=== PATIENT | female | born 1990 | race African-American/Black ===

== ENCOUNTER 2023-03-25 15:33 | Outpatient (CLI) | payer OTHER ==
[2023-03-27 20:08] LABS: AFP MOM 0.99 (.); AFP VALUE 43.5 ng/mL (.); DIA MOM 0.94 (.); DIA VALUE 125.58 pg/mL (.); DSR (BY AGE) 1 IN 596 (.); DSR (SECOND TRIMESTER) 1 IN 6922 (.); GEST. AGE ON COLLECTION DATE 18.4 WEEKS (.); GESTAT. AGE METHOD EDD (.); HCG MOM 0.79 (.); HCG VALUE 18834 mIU/mL (.); INSULIN DEP DIABETES No (.); MATERNAL AGE AT EDD 31.2 yr (.); MULTIPLE GESTATION No (.); OPEN SPINA BIFIDA RISK 1 IN 10000 (.); RACE Black (.); RESULTS Report (.); TEST RESULTS *Screen Negative* (.); TRISOMY 18 RISK Not increased (.); UE3 MOM 1.31 (.); UE3 VALUE 1.91 ng/mL (.); WEIGHT 195 lbs (.)
== END 2023-03-25 15:34 | disposition home or self-care (01) ==
LOC: LAB 15:33
PROVIDERS: ATTEND Nurse Practitioner Obstetrics & Gynecology
DX: Z13.79 Encounter for other screening for genetic and chromosomal anomalies (principal)
CPT/HCPCS: 81511

== ENCOUNTER 2023-04-08 18:51 | Outpatient (CLI) | payer OTHER ==
--- NOTE | 2023-04-10 11:22 | Ultrasound Report ---
PROCEDURE: OB Detailed Eval INDICATIONS: SUPERVISION OF OUTSIDE/PRIOR DATING DATA: Last menstrual period (LMP): 11/19/2022. LMP-based estimated date of delivery (RODRIGO): 08/23/2023. First dating scan (date and location): 02/09/2023; outside facility. Estimated date of delivery (RODRIGO) from first dating scan: 08/20/2023. The below data below was generated using the working RODRIGO of 08/20/2023 TECHNIQUE: Real-time scanning was performed of the fetus, with image documentation and biometric measurements. COMPARISON: Not available. FINDINGS: General: A single living intrauterine gestation is present. Presentation: Vertex Placenta: Placental position is anterior, without previa. Amniotic fluid index: 19.6 cm; largest pocket 8.2 cm. heart rate: 152 beats per minute. Maternal cervical canal: 4.2 cm long; normal length is 2.5 cm or more. biometrics: Biparietal diameter: 21 weeks 2 days Head circumference: 21 weeks to 4 days Abdominal circumference: 22 weeks 4 days Femur length: 21 weeks 2 days Estimated gestational age from initial scan: 20 weeks 6 days. Composite gestational age from present scan: 21 weeks 3 days Estimated weight and percentile: 460 g; 92.6% for gestational age. Measurement variability in biometric dating: +/- 10 days from 12-20 weeks gestation, +/- 2 weeks from 20-30 weeks gestation, +/- 3 weeks at 30 weeks gestation or later. Anatomic survey: Neuro: Ventricles are normal at less than 10 mm. Cisterna magna is normal at 3-11 mm. Cerebellum i s normal in size and morphology. Nuchal skin fold: 6.02 cm (normal less than 6.0 mm between 14 and 20 weeks gestational age). Face: Suboptimal visualization of nose, lips, orbits. Normal facial profile. Spine: Suboptimal visualization. Heart: 4-chambered heart is present, with normal ventricular outflow tracts. Diaphragm: Diaphragm is intact. Stomach: Left-sided stomach is present. Kidneys: No hydronephrosis. Normal is less than 5 mm in 2nd trimester, less than 7 mm in 3rd trimester. Cord: 3 vessel cord has orthotopic insertion. Bladder: Normal in size. Extremities: All 4 extremities are visualized. IMPRESSION: 1. A single living IUP with interval growth within normal limits. 2. The estimated weight is at 92.6% for gestational age. 3. Subcentimeter visualization of face and spine due to lie. Consider follow-up imaging. Reviewed by: Florecita Haji MD on 04/10/2023 11:21 AM PDT Approved by: Florecita Haji MD on 04/10/2023 11:21 AM PDT Station ID: [id number]
== END 2023-04-08 18:52 | disposition home or self-care (01) ==
LOC: DI 18:51
PROVIDERS: ATTEND Nurse Practitioner Obstetrics & Gynecology
DX: Z34.02 Encounter for supervision of normal first pregnancy, second trimester (principal); Z36.89 Encounter for other specified antenatal screening

== ENCOUNTER 2023-04-28 13:11 | Outpatient (CLI) | payer OTHER ==
--- NOTE | 2023-04-28 15:42 | Ultrasound Report ---
PROCEDURE: OB F/U or Repeat INDICATIONS: SUPERVISION OF . Patient presents for completion of anatomy study. OUTSIDE/PRIOR DATING DATA: Last menstrual period (LMP): 11/19/2022. LMP-based estimated date of delivery (RODRIGO): 08/23/2023. First dating scan (date and location): 02/09/2023. Estimated date of delivery (RODRIGO) from first dating scan: 08/20/2023. The below data below was generated using the ultrasound RODRIGO of 08/20/2023 TECHNIQUE: Real-time scanning was performed of the fetus, with image documentation and biometric measurements. Endovaginal scanning: Not performed COMPARISON: 04/08/2023 FINDINGS: General: A single living intrauterine gestation is present. Presentation: Vertex Placenta: Placental position is anterior, without previa. Amniotic fluid index: 22.9 cm, 97th percentile for gestational age. heart rate: 143 beats per minute. Maternal cervical canal: 5.4 cm long; normal length is 2.5 cm or more. biometrics: Estimated gestational age from initial scan: 23 weeks 5 days Composite gestational age from present scan: Not measured Estimated weight and percentile: Not measured Measurement variability in biometric dating: +/- 10 days from 12-20 weeks gestation, +/- 2 weeks from 20-30 weeks gestation, +/- 3 weeks at 30 weeks gestation or more. Other: Face, orbits, nose and lips, spine and nuchal thickness are all within normal limits. Nuchal t hickness previously measured 6.02 mm, and now measures 5.8 mm. There is a nuchal cord. IMPRESSION: 1. Single living second trimester intrauterine . 2. Polyhydramnios. 3. Completion of normal anatomy study. 4. Nuchal CORD. Reviewed by: Jian Luque MD on 04/28/2023 3:41 PM PDT Approved by: Jian Luque MD on 04/28/2023 3:41 PM PDT Station ID: [id number]
== END 2023-04-28 13:12 | disposition home or self-care (01) ==
LOC: DI 13:11
PROVIDERS: ATTEND Nurse Practitioner Obstetrics & Gynecology
DX: Z36.89 Encounter for other specified antenatal screening (principal); O40.9XX0 Polyhydramnios, unspecified trimester, not applicable or unspecified; Z3A.00 Weeks of gestation of pregnancy not specified

== ENCOUNTER 2023-04-29 09:26 | Emergency (ER) | payer OTHER ==
--- NOTE | 2023-04-29 09:37 | ED Physician Documentation ---
PD HPI CHEST PAIN - Stated complaint Stated Complaint: DIZZY,CHEST PX,SWEATING - History obtained from History obtained from: Patient - Additional information Additional information: Previously healthy 32-year-old woman with no personal or family history of heart disease presents for the evaluation of resolved dizziness chest pain and palpitations. She is a G3, P2 at 23 weeks gestation with normally progressing . She was getting her son ready for school doing light activity around the house and she developed rapid palpitations associated with chest pressure shortness of breath and sweating. It lasted about 20 to 25 minutes. It is resolved now. She denies pedal edema, calf pain, recent travel, or ongoing chest pain or shortness of breath. PD PAST MEDICAL HISTORY - Allergies Allergies/Adverse Reactions: Allergies Allergy/AdvReac Type Severity Reaction Status Date / Time No Known Drug Allergies Allergy Verified 04/29/23 09:39 PD ED PE NORMAL - Vitals Vital signs reviewed: Yes (Mild resting tachycardia with occasional PVCs on the monitor) - General General: Alert and oriented X 3, No acute distress - HEENT HEENT: PERRL, EOMI - Neck Neck: Supple, no meningeal sign, No bony TTP - Cardiac Cardiac: No murmur, Other (Mild resting tachycardia with occasional PVCs on the monitor) - Respiratory Respiratory: No respiratory distress, Clear bilaterally - Abdomen Abdomen: Non tender, Other (Gravid) - Extremities Extremities: No edema, No calf tenderness / cord - Neuro Neuro: Alert and oriented X 3, Normal speech Results - Vitals Vitals: Vital Signs - 24 hr 04/29/23 04/29/23 04/29/23 09:34 09:48 13:11 Temperature 36.7 C Heart Rate 95 95 89 Respiratory 14 16 Rate Blood Pressure 105/74 105/74 111/64 O2 Saturation 100 100 99 Oxygen O2 Source Room air - EKG (time done) 0935 EKG releavant findings:: EKG personally interpreted by author of this note. Relevant findings are: Rate: Rate (enter#) (94) Rhythm: NSR [place]: Normal Intervals: Normal MO QRS: Low voltage Ischemia: Normal ST segments - Labs Labs: Laboratory Tests 04/29/23 04/29/23 04/29/23 09:42 09:42 09:42 WBC 8.9 RBC 3.74 L Hgb 9.9 L Hct 32.2 L MCV 86.1 MCH 26.5 L MCHC 30.7 L RDW 14.1 Plt Count 354 MPV 9.5 Neut # (Auto) 5.8 Lymph # (Auto) 2.0 [place] # (Auto) 0.8 Eos # (Auto) 0.2 Baso # (Auto) 0.0 Absolute Nucleated RBC 0.00 Nucleated RBC % 0.0 D-Dimer Sodium 137 Potassium 3.7 Chloride 106 Carbon Dioxide 25 Anion Gap 6.0 BUN 6 Creatinine 0.5 Estimated GFR (MDRD) 176 Glucose 84 Calcium 8.6 Magnesium 1.6 L Troponin I High Sens 34.8 H* SARS-CoV-2 (PCR) 04/29/23 04/29/23 04/29/23 10:25 12:00 13:00 WBC RBC Hgb Hct MCV MCH MCHC RDW Plt Count MPV Neut # (Auto) Lymph # (Auto) [place] # (Auto) Eos # (Auto) Baso # (Auto) Absolute Nucleated RBC Nucleated RBC % D-Dimer 677.9 H Sodium Potassium Chloride Carbon Dioxide Anion Gap BUN Creatinine Estimated GFR (MDRD) Glucose Calcium Magnesium Troponin I High Sens 103.2 H* SARS-CoV-2 (PCR) NOT DETECTED PD Medical Decision Making - ED course ED course: 32-year-old woman in second trimester presents with resolved chest pain and trouble breathing. Here she is mildly tachycardic with a nonischemic EKG and her troponin did come up positive at 34.8. Subsequently a D-dimer was added on and this was also positive. After verbal informed consent she did consent for CT after discussion of risks and benefits related to radiation. She is anemic with normocytic indices, no prior values available. CT was mildly bad bolus timing but radiologist felt confident that there was no central or segmental PE. Second troponin went up significantly from 34, up to 103. She remained pain and symptom free. At this point this could be unstable angina with elevated biomarkers versus a suppose she could have had a ta chyarrhythmia earlier that caused enough strain to cause a troponin leak. [facility] cardiology was called for consultation at approximately 12:20 PM. I spoke with the oncall residence director at [facility] at approximately 1:30 PM who recommends transfer to a higher level of care than they have with [facility] and cardiology such as [facility] or [facility]. At 2:20 PM she is excepted to the [facility] L&D by Dr. Malathi Astorga, M specialist. She discussed with her residence director, and no treatment is recommended prior to transport. She still symptom-free. Departure - Departure Disposition: 02 Transfer Acute Care Hosp Clinical Impression: , Chest pain, Elevated troponin Condition: Serious Comments: You are moderately anemic with a hemoglobin of 9.9 and hematocrit of 32.2. This is not uncommon in , but should definitely be mentioned to and followed by your nurse tension machine operator.
[2023-04-29 09:47] LABS: BASOPHILS % (AUTO) 0.2 %; EOSINOPHILS # (AUTO) 0.2 10^3/uL (0.0-0.7); HCT - HEMATOCRIT 32.2 % (37.0-47.0); HGB - HEMOGLOBIN 9.9 g/dL (12.0-16.0); LYMPHOCYTES % (AUTO) 22.2 %; MEAN CORPUSCULAR HEMOGLOBIN 26.5 pg (27.0-31.0); MEAN CORPUSCULAR HGB CONC 30.7 g/dL (32.0-36.0); MEAN CORPUSCULAR VOLUME 86.1 fL (81.0-99.0); MEAN PLATELET VOLUME 9.5 fL (7.9-10.8); MONOCYTES # (AUTO) 0.8 10^3/uL (0.0-1.0); NEUTROPHILS # (AUTO) 5.8 10^3/uL (1.5-6.6); NEUTROPHILS % (AUTO) 65.5 %; PLT - PLATELET COUNT 354 10^3/uL (130-450); RED BLOOD COUNT 3.74 10^6/uL (4.20-5.40); RED CELL DISTRIBUTION WIDTH 14.1 % (12.0-15.0); WHITE BLOOD COUNT 8.9 x10^3/uL (4.8-10.8)
[2023-04-29 09:58] LABS: CALCIUM 8.6 mg/dL (8.5-10.3); CREATININE 0.5 mg/dL (0.4-1.0); MAGNESIUM 1.6 mg/dL (1.7-2.8); POTASSIUM 3.7 mmol/L (3.5-5.0)
[2023-04-29] MEDS ORDERED: SODIUM CHLORIDE 0.9% 1,000 ML IV STA (10:26)
--- NOTE | 2023-04-29 12:09 | CT Report ---
PROCEDURE: ANGIO CHEST W/WO INDICATIONS: CHEST PAIN, HIGH DIMER female. CONTRAST: 80ml Omnipaque 300 TECHNIQUE: After the administration of intravenous contrast, 2 mm axial images were acquired from the pulmonary apices to the posterior costophrenic angles during the arterial phase. In addition, 1 mm lung kernel and 5 mm soft tissue kernel reconstructions were performed. 3-dimensional coronal oblique maximum int ensity projection (MIP) reformats, 8 mm axial MIP, and 5 mm coronal and sagittal MPR reformats were t hen performed through the thorax. For radiation dose reduction, the following was used: automated exp osure control, adjustment of mA and/or kV according to patient size. COMPARISON: None FINDINGS: Image quality: Bolus timing is somewhat suboptimal. However, it is considered diagnostic except for p erhaps tiny peripheral PE. There were apparently 2 separate attempts. Large vessels: No filling defects within the opacified pulmonary arteries, accounting for motion and contrast timing. No evidence of acute aortic syndrome or aortic aneurysm. Lungs and pleura: No consolidation. No pleural effusions. No pneumothorax. No suspicious pulmonary n odules which require follow up. Mediastinum: Heart size is normal. No pericardial effusion. No large vessel abnormality. No mediastin al adenopathy by size criteria. Chest wall and lower neck: Thyroid is unremarkable. No axillary or supraclavicular adenopathy by size . Bones: No aggressive osseous abnormality. Upper Abdomen: Unremarkable. IMPRESSION: 1. No acute pulmonary emboli identified. Bolus timing is somewhat suboptimal, but felt to be adequate for large in moderate pulmonary emboli, possibly nondiagnostic for tiny peripheral pulmonary emboli. 2. No acute pulmonary process. Above discussed with Scooby Guajardo MD at the time of dictation. Reviewed by: Jian Luque MD on 04/29/2023 12:08 PM PDT Approved by: Jian Luuqe MD on 04/29/2023 12:08 PM PDT Station ID: [id number]
[2023-04-29 18:01] VITALS: BP 109/65
== END 2023-04-29 18:03 | disposition short-term general hospital (02) ==
LOC: ED 09:26
DX: O26.892 Other specified pregnancy related conditions, second trimester (principal); Z3A.23 23 weeks gestation of pregnancy; R07.9 Chest pain, unspecified; R77.8 Other specified abnormalities of plasma proteins; Z20.822 Contact with and (suspected) exposure to COVID-19
CPT/HCPCS: 36415; 71275; 80048; 83735; 84484; 85025; 85379; 87635; 93005; 93306; 96360; 99285; Q9967

== ENCOUNTER 2024-05-18 16:15 | Outpatient (CLI) | payer OTHER ==
--- NOTE | 2024-05-19 08:34 | XRAY Report ---
PROCEDURE: Foot 3+V RT INDICATIONS: WT PAIN IN RIGHT FOOT TECHNIQUE: 3 views of the foot were acquired. COMPARISON: None. FINDINGS: Bones: Comminuted minimally displaced intra-articular fracture is seen at the 1st proximal phalangeal head. No suspicious bony lesions. Soft tissues: Soft tissue edema is seen in the great toe. IMPRESSION: Comminuted minimally displaced intra-articular fracture of the 1st proximal phalangeal head. Reviewed by: Mauro Goldberg MD on 05/19/2024 8:33 AM PDT Approved by: Mauro Goldberg MD on 05/19/2024 8:33 AM PDT Station ID: [id number]
== END 2024-05-18 16:16 | disposition home or self-care (01) ==
LOC: DI 16:15
PROVIDERS: ATTEND Physician Assistant Surgical
DX: S92.411A Displaced fracture of proximal phalanx of right great toe, initial encounter for closed fracture (principal)

== ENCOUNTER 2024-06-15 16:29 | Outpatient (CLI) | payer OTHER ==
--- NOTE | 2024-06-16 14:58 | XRAY Report ---
PROCEDURE: Foot 3+V RT (Weight Bearing) INDICATIONS: DISPLACED FRACTURE OF GREAT TOE TECHNIQUE: 3 views of the foot were acquired. COMPARISON: 05/18/2024 FINDINGS: Bones: Continued bony remodeling of the first proximal phalanx head fracture. Soft tissues: No tibiotalar joint effusion. Achilles tendon appears normal. IMPRESSION: Interval healing of the first proximal phalanx head fracture. Reviewed by: David Leigh MD on 06/16/2024 2:56 PM PDT Approved by: David Leigh MD on 06/16/2024 2:56 PM PDT Station ID: [id number]
== END 2024-06-15 16:30 | disposition home or self-care (01) ==
LOC: DI 16:29
PROVIDERS: ATTEND Physician Assistant Surgical
DX: S92.411D Displaced fracture of proximal phalanx of right great toe, subsequent encounter for fracture with routine healing (principal)